=== PATIENT | female | born 1965 | race Caucasian/White ===

== ENCOUNTER 2017-06-27 18:23 | Emergency (ER) | payer MEDICAID ==
[~2017-06-27] VITALS: Ht 160 cm; Wt 85.0 kg
[2017-06-27 19:15] VITALS: BP 133/100
[2017-06-28] MEDS ORDERED: TRAM50TA2 PO (02:07)
[2017-06-28] MEDS ORDERED: HYDROcodone/acetaminophen 5mg/325mg tablet PO ONE (03:35)
== END 2017-06-28 03:04 | disposition home or self-care (01) ==
LOC: ER 18:24
DX: S80.12XA Contusion of left lower leg, initial encounter (principal); X58.XXXA Exposure to other specified factors, initial encounter; Y93.89 Activity, other specified; Y92.89 Other specified places as the place of occurrence of the external cause; Y99.8 Other external cause status
CPT/HCPCS: 93970; 99284

== ENCOUNTER 2017-08-02 15:52 | Emergency (ER) | payer MEDICAID ==
[~2017-08-02] VITALS: Ht 558.9 cm; Wt 96.0 kg
[~2017-08-02 15:52] MED LIST: TRAM50TA2 PO
[2017-08-02 15:54] VITALS: BP 142/82
[2017-08-02] MEDS ORDERED: normal saline 1000ML IV soln IVB ONE (16:05)
[2017-08-02] MEDS ORDERED: dexamethasone sod phosphate 10mg/ml inj IM STA (16:26)
[2017-08-02] MEDS ORDERED: ketorolac trometh. 30mg/ml inj. IV ONE (16:30)
[2017-08-02] MEDS ORDERED: LORazepam 2 mg/ml vial IV ONE (16:30)
[2017-08-02 16:36] LABS: BASOPHILS % (AUTO) 0.1 % (0-1); EOSINOPHILS # (AUTO) 0.3 X10'3 (0-0.9); EOSINOPHILS % (AUTO) 3.7 % (0-6); HEMATOCRIT 38.4 % (35.0-45.0); HEMOGLOBIN 13.1 g/dl (12.0-16.0); LYMPHOCYTES # (AUTO) 1.9 X10'3 (1.1-4.8); LYMPHOCYTES % (AUTO) 23.6 % (21-51); MEAN CORPUSCULAR HEMOGLOBIN 31.4 PG (27.0-31.0); MEAN CORPUSCULAR HGB CONC 34.3 % (33.0-36.5); MEAN CORPUSCULAR VOLUME 91.6 FL (78-98); MEAN PLATELET VOLUME 8.3 FL (7.4-10.4); MONOCYTES # (AUTO) 0.6 X10'3 (0-0.9); MONOCYTES % (AUTO) 7.2 % (2-12); NEUTROPHILS # (AUTO) 5.4 X10'3 (1.8-7.7); NEUTROPHILS % (AUTO) 65.4 % (42-75); PLATELET COUNT 229 X10'3 (140-440); RED BLOOD COUNT 4.19 X10'6 (4.20-5.60); RED CELL DISTRIBUTION WIDTH 14.7 % (11.5-14.5); WHITE BLOOD COUNT 8.2 X10'3 (4.5-11.0)
[2017-08-02 16:50] LABS: ALANINE AMINOTRANSFERASE 24 U/L (12-78); ALBUMIN 3.3 G/DL (3.4-5.0); ALKALINE PHOSPHATASE 78 IU/L (46-116); ANION GAP 12 (8-16); ASPARTATE AMINO TRANSFERASE 15 U/L (10-37); BILIRUBIN,TOTAL 0.3 MG/DL (0.1-1.0); BLOOD UREA NITROGEN 22 MG/DL (7-18); BUN/CREATININE RATIO 19.6 (6.6-38.0); CALCIUM 9.1 MG/DL (8.5-10.1); CHLORIDE 105 MMOL/L (99-107); CREATININE 1.12 MG/DL (0.40-0.90); GLUCOSE 90 MG/DL (70-104); SODIUM 140 MMOL/L (135-145); TOTAL PROTEIN 6.6 G/DL (6.4-8.2); eGFR 51 ML/MIN
== END 2017-08-02 17:29 | disposition home or self-care (01) ==
LOC: ER 15:53
DX: G43.809 Other migraine, not intractable, without status migrainosus (principal); E78.00 Pure hypercholesterolemia, unspecified; Z91.040 Latex allergy status; Z79.899 Other long term (current) drug therapy
CPT/HCPCS: 36415; 70450; 80053; 85025; 93005; 96361; 96372; 96374; 96375; 99285; J1100; J1885; J2060; J7030

== ENCOUNTER 2019-06-13 07:17 | Day surgery (SDC) | payer MEDICAID ==
[2019-06-09 10:30] LABS: BASOPHILS % (AUTO) 0.5 % (0-1); EOSINOPHILS # (AUTO) 0.1 X10'3 (0-0.9); EOSINOPHILS % (AUTO) 1.8 % (0-6); LYMPHOCYTES # (AUTO) 1.3 X10'3 (1.1-4.8); LYMPHOCYTES % (AUTO) 14.9 % (21-51); MEAN CORPUSCULAR HEMOGLOBIN 31.2 PG (27.0-31.0); MEAN CORPUSCULAR HGB CONC 33.3 g/dL (33.0-36.5); MEAN CORPUSCULAR VOLUME 93.8 FL (78-98); MEAN PLATELET VOLUME 8.5 FL (7.4-10.4); MONOCYTES # (AUTO) 0.5 X10'3 (0-0.9); MONOCYTES % (AUTO) 6.1 % (2-12); NEUTROPHILS # (AUTO) 6.5 X10'3 (1.8-7.7); NEUTROPHILS % (AUTO) 76.7 % (42-75); PRE OP HEMATOCRIT 44.2 % (35.0-45.0); PRE OP HEMOGLOBIN 14.7 g/dL (12.0-16.0); PRE OP PLATELET COUNT 347 X10'3 (140-440); RED BLOOD COUNT 4.71 X10'6 (4.20-5.60); RED CELL DISTRIBUTION WIDTH 15.2 % (11.5-14.5)
[2019-06-09 10:32] LABS: COLOR,URINE YELLOW (Yellow); GLUCOSE, URINE NEGATIVE (Neg); KETONES,URINE NEGATIVE (Neg); LEUKOCYTE ESTERASE ,URINE TRACE (Neg); NITRITES, URINE NEGATIVE (Neg); OCCULT BLOOD,URINE NEGATIVE (Neg); PH,URINE 5.5 (4.8-8.0); PROTEIN,URINE NEGATIVE (Neg); UROBILINOGEN,URINE 0.2 E.U/dL (0.2-1.0)
[2019-06-09 10:36] LABS: CLARITY,URINE SLIGHTLY CLOUDY (Clear); UA COLLECTION TYPE CLN CATCH MIDSTREAM
[2019-06-09 10:40] LABS: BACTERIA,URINE 1+ /HPF (Neg); SQUAMOUS EPITHELIAL CELL,UR MODERATE /LPF (FEW)
[2019-06-09 10:41] LABS: RBC,URINE 0-2 /HPF (0-2)
[2019-06-09 10:42] LABS: ALBUMIN 3.7 G/DL (3.4-5.0); ALKALINE PHOSPHATASE 90 IU/L (46-116); BLOOD UREA NITROGEN 18 MG/DL (7-18); CALCIUM 9.3 MG/DL (8.5-10.1); CHLORIDE 105 MMOL/L (99-107); PRE OP ALT 24 U/L (30-65); PRE OP ANION GAP 6 (8-16); PRE OP AST 22 U/L (10-37); PRE OP BILIRUB, TOTAL 0.3 MG/DL (0.0-1.0); PRE OP GLUCOSE 90 MG/DL (70-104); PRE OP POTASSIUM 4.6 MMOL/L (3.4-5.1); PRE OP SODIUM 140 MMOL/L (135-145); TOTAL CARBON DIOXIDE 29.4 MMOL/L (24-32); TOTAL PROTEIN 7.5 G/DL (6.4-8.2); eGFR 58 ML/MIN
[2019-06-13] VITALS (13 sets, daily range): BP systolic 122–144; BP diastolic 73–94
[~2019-06-13] VITALS: Ht 162.6 cm; Wt 95.3 kg
[~2019-06-13 07:17] MED LIST changes: +ACET-812 PO; +ALBU8.5H8 INH; +BECL10.6 INH; -TRAM50TA2 PO; +cefazolin/dext.iso 2gm/100ml 100 ML IV ONE; +famotidine 20mg tablet PO ONE; +ringers solution, lacted 1,000 ML IV SCH
[2019-06-13] MEDS ORDERED: ringers solution, lacted 1,000 ML IV SCH (07:43)
[2019-06-13] MEDS ORDERED: ondansetron/PF 4mg/2ml inj IV PRN (07:45)
[2019-06-13] MEDS ORDERED: morphine 2 MG/ML inj. syringe IV PRN (07:45)
[2019-06-13] MEDS ORDERED: proCHLORperazine 10 MG/2 ml inj IV PRN (07:45)
[2019-06-13] MEDS ORDERED: meperidine/PF 25mg/ml syringe IV PRN ×2 (07:45)
[2019-06-13] MEDS ORDERED: sevoflurane 250ml liquid IH ONE (09:25)
[2019-06-13] MEDS ORDERED: MIDAZolam 5mg/5ml vial ONE (09:33)
[2019-06-13] MEDS ORDERED: fentaNYL/PF 50MCG/1 ML 2ML syringe ONE (09:33)
[2019-06-13] MEDS ORDERED: LIDOcaine 2% (20mg/ml) 5ml vial ONE (09:47)
[2019-06-13] MEDS ORDERED: propofol inj 20 ML IV ONE (09:47)
[2019-06-13] MEDS ORDERED: rocuronium 10mg/ml inj IV ONE (09:48)
[2019-06-13] MEDS ORDERED: dexamethasone sod phosphate 4mg/ml inj. ONE (10:04)
[2019-06-13] MEDS ORDERED: ondansetron/PF 4mg/2ml inj ONE (10:05)
[2019-06-13] MEDS ORDERED: acetaminophen 1,000mg/100ml IV 100 ML IV ONE (10:06)
[2019-06-13] MEDS ORDERED: bacitracin 15gm ointment TP ONE (11:02)
--- NOTE | 2019-06-13 11:21 | NUR ---
Received from OR via [facility], accompanied by Anesthesiologist DR DUMONT and report given by Anesthesiologist. 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 Addendum: 06/13/19 at 1205 by Chela Calles RN Amended: Links added.
[2019-06-13] MEDS: meperidine/PF 25mg/ml syringe IV PRN ×3 (11:45→12:29)
[2019-06-13] MEDS: morphine 4 MG/ML inj SYRINge IV PRN ×2 (12:00→12:10)
[2019-06-13] MEDS ORDERED: HYDROcodone/acetaminophen 10/325mg tab PO ONE (12:50)
[2019-06-13] MEDS ORDERED: ketorolac trometh. 30mg/ml inj. IV ONE (12:50)
[2019-06-13] MEDS ORDERED: ibuprofen 200mg tablet PO ONE (13:40)
--- NOTE | 2019-06-13 13:41 | NUR ---
PT D/C INSTRUCTIONS GIVEN AND GONE OVER W/PT WHO VERBALIZES UNDERSTANDING, PT PAIN IMPROVED BUT STILL 06/14, DR ALANIS AND DR DUMONT AWARE, PT D/CD TO HOME VIA W/C TO PRIVATE VEHICLE W/O INCIDENT. Addendum: 06/13/19 at 1419 by Chela Calles RN Amended: Links added.
[2019-06-14] MEDS ORDERED: albuterol 2.5 MG/3 ML nebule NEB ONE (05:30)
== END 2019-06-13 13:41 | disposition home or self-care (01) ==
LOC: PAS 07:17
PROVIDERS: ATTEND Podiatrist Foot & Ankle Surgery
DX: M21.6X1 Other acquired deformities of right foot (principal); M76.61 Achilles tendinitis, right leg; M92.61 Juvenile osteochondrosis of tarsus, right ankle; M77.31 Calcaneal spur, right foot; Z79.82 Long term (current) use of aspirin; F17.210 Nicotine dependence, cigarettes, uncomplicated; F41.8 Other specified anxiety disorders; M19.90 Unspecified osteoarthritis, unspecified site; Z79.899 Other long term (current) drug therapy; Z11.59 Encounter for screening for other viral diseases
CPT/HCPCS: 27650; 27687; 28119; 36415; 80053; 81001; 82948; 85025; 87088; 87635; 93005; 94640; 94760; A6223; C1713; J0131; J1100; J1885; J2001; J2175; J2250; J2270; J2405; J2704; J3010; J7120; A4215; A4618; A6253; A6449; A7000

== ENCOUNTER 2021-02-27 12:59 | Emergency (ER) | payer MEDICAID ==
[~2021-02-27] VITALS: Ht 160 cm; Wt 81.8 kg
[~2021-02-27 12:59] MED LIST changes: +ALBU8.5H17 INH; -ALBU8.5H8 INH; -cefazolin/dext.iso 2gm/100ml 100 ML IV ONE; -famotidine 20mg tablet PO ONE; -ringers solution, lacted 1,000 ML IV SCH
[2021-02-27 13:39] VITALS: BP 119/79
[2021-02-27] MEDS ORDERED: ketorolac trometh inj. 60 MG/2 ML VIAL IM ONE (15:15)
[2021-02-27] MEDS ORDERED: ALBU8HFA PO (16:31)
== END 2021-02-27 18:00 | disposition home or self-care (01) ==
LOC: ER 13:00
DX: R05.9 Cough, unspecified (principal); Z20.822 Contact with and (suspected) exposure to COVID-19; R11.2 Nausea with vomiting, unspecified; R19.7 Diarrhea, unspecified; J45.909 Unspecified asthma, uncomplicated; E78.00 Pure hypercholesterolemia, unspecified; Z86.19 Personal history of other infectious and parasitic diseases; Z91.040 Latex allergy status; Z79.899 Other long term (current) drug therapy
CPT/HCPCS: 71045; 87635; 96372; 99284; C9803; J1885

== ENCOUNTER 2021-03-26 11:32 | Emergency (ER) | payer MEDICAID, OTHER ==
[~2021-03-26] VITALS: Ht 162.6 cm; Wt 85.5 kg
[~2021-03-26 11:32] MED LIST changes: +ALBU8HFA PO
[2021-03-26 11:46] VITALS: BP 127/86
[2021-03-26] MEDS ORDERED: ketorolac trometh. 30mg/ml inj. IM ONE (12:10)
--- NOTE | 2021-03-26 14:16 | NUR ---
PT STATES "YAGLENROY ARE TREATING ME LIKE A DRUG ADDICT BECAUSE I WANT PAIN MEDICINE WHILE I AM HERE"; EDUCATED THAT PT DID RECEIVED TORADOL. STATES THAT THE MEDICATION GIVEN DID NOT HELP AND THE TYLENOL OR MOTRIN WON'T HELP EITHER. STATES THAT SHE IS FILING A COMPLAINT WITH LEGAL WE ARE MISTREATING HER. INSTRUCTED PT TO FOLLOW UP WITH PCP TO DISCUSS ADDITIONAL PAIN CONTROL NOTHING EMERGENT WAS FOUND DURING ASSESSMENT AND EVALUATION.
== END 2021-03-26 14:19 | disposition home or self-care (01) ==
LOC: ER 11:48
DX: S43.52XA Sprain of left acromioclavicular joint, initial encounter (principal); S63.502A Unspecified sprain of left wrist, initial encounter; S83.92XA Sprain of unspecified site of left knee, initial encounter; E78.00 Pure hypercholesterolemia, unspecified; J45.909 Unspecified asthma, uncomplicated; F17.200 Nicotine dependence, unspecified, uncomplicated; F12.90 Cannabis use, unspecified, uncomplicated; Z91.040 Latex allergy status; Z79.899 Other long term (current) drug therapy; W19.XXXA Unspecified fall, initial encounter; Y93.89 Activity, other specified; Y92.89 Other specified places as the place of occurrence of the external cause; Y99.8 Other external cause status
CPT/HCPCS: 73030; 73100; 73560; 96372; 99284; J1885

== ENCOUNTER 2022-03-07 10:41 | Emergency (ER) | payer MEDICAID, OTHER ==
[~2022-03-07] VITALS: Ht 162.6 cm; Wt 86.4 kg
[~2022-03-07 10:41] MED LIST changes: -ALBU8HFA PO
[2022-03-07 10:46] VITALS: BP 155/96
[2022-03-07] MEDS ORDERED: levetiracetam inj 1,000 MG in normal saline 100ml IV soln 90 ML IV STA (10:46)
[2022-03-07] MEDS ORDERED: normal saline 1000ML IV soln IVB ONE (10:50)
[2022-03-07] MEDS ORDERED: LORazepam 2 mg/ml vial IV ONE (10:50)
[2022-03-07] MEDS ORDERED: levetiracetam inj 1,000 MG in normal saline 100ml IV soln 100 ML IV STA (10:52)
[2022-03-07] MEDS ORDERED: ondansetron/PF 4mg/2ml inj IV ONE (10:53)
[2022-03-07] MEDS ORDERED: magnesium 2GM in 50ml NS 50 ML IV ONE (10:53)
[2022-03-07 11:18] LABS: BASOPHILS % (AUTO) 0.4 % (0-1); EOSINOPHILS % (AUTO) 0.2 % (0-6); HEMATOCRIT 43.2 % (35.0-45.0); HEMOGLOBIN 14.5 g/dl (12.0-16.0); LYMPHOCYTES # (AUTO) 1.1 X10'3 (1.1-4.8); LYMPHOCYTES % (AUTO) 9.9 % (21-51); MEAN CORPUSCULAR HEMOGLOBIN 30.7 PG (27.0-31.0); MEAN CORPUSCULAR HGB CONC 33.6 g/dL (33.0-36.5); MEAN CORPUSCULAR VOLUME 91.4 FL (78-98); MEAN PLATELET VOLUME 7.7 FL (7.4-10.4); MONOCYTES # (AUTO) 0.7 X10'3 (0-0.9); NEUTROPHILS # (AUTO) 9.3 X10'3 (1.8-7.7); NEUTROPHILS % (AUTO) 83.5 % (42-75); PLATELET COUNT 334 X10'3 (140-440); RED BLOOD COUNT 4.72 X10'6 (4.20-5.60); RED CELL DISTRIBUTION WIDTH 14.7 % (11.5-14.5); WHITE BLOOD COUNT 11.1 X10'3 (4.5-11.0)
--- NOTE | 2022-03-07 11:28 | NUR ---
to ct scan.
[2022-03-07 11:32] LABS: ALANINE AMINOTRANSFERASE 51 U/L (12-78); ALBUMIN 3.7 G/DL (3.4-5.0); ALBUMIN/GLOBULIN RATIO 0.9 (1.1-1.5); ALKALINE PHOSPHATASE 114 IU/L (46-116); ANION GAP 11 (8-16); ASPARTATE AMINO TRANSFERASE 32 U/L (10-37); BILIRUBIN,TOTAL 0.4 MG/DL (0.1-1.0); BLOOD UREA NITROGEN 21 MG/DL (7-18); BUN/CREATININE RATIO 20.8 (6.6-38.0); CALCIUM 9.8 MG/DL (8.5-10.1); CHLORIDE 100 MMOL/L (99-107); CREATININE 1.01 MG/DL (0.40-0.90); GLUCOSE 145 MG/DL (70-104); SODIUM 135 MMOL/L (135-145); TOTAL CARBON DIOXIDE 24.2 MMOL/L (24-32); eGFR 57 ML/MIN
[2022-03-07 11:33] LABS: CREATINE KINASE 47 U/L (26-192); ETHANOL < 0.010 GM/DL (0.0-0.010)
[2022-03-07] MEDS ORDERED: ketorolac trometh. 30mg/ml inj. IV ONE (11:35)
--- NOTE | 2022-03-07 12:17 | NUR ---
c- collar taken off as per verbal order of lesa weiner.
[2022-03-07] MEDS ORDERED: HYDROcodone/acetaminophen 5mg/325mg tablet PO ONE (16:10)
== END 2022-03-07 16:41 | disposition home or self-care (01) ==
LOC: ER 10:42
DX: G40.909 Epilepsy, unspecified, not intractable, without status epilepticus (principal); E78.00 Pure hypercholesterolemia, unspecified; J45.909 Unspecified asthma, uncomplicated; F12.90 Cannabis use, unspecified, uncomplicated; Z91.040 Latex allergy status
CPT/HCPCS: 36415; 70450; 72125; 72131; 80053; 80320; 82140; 82550; 85025; 93005; 96365; 96366; 96368; 96375; 99285; J1885; J1953; J2060; J2405; J3475; J3490; J7030

== ENCOUNTER 2022-04-10 05:38 | Emergency (ER) | payer MEDICAID ==
[~2022-04-10] VITALS: Ht 160 cm; Wt 84.0 kg
[2022-04-10 06:28] LABS: BASOPHILS # (AUTO) 0.1 X10'3 (0-0.2); BASOPHILS % (AUTO) 0.8 % (0-1); EOSINOPHILS # (AUTO) 0.4 X10'3 (0-0.9); EOSINOPHILS % (AUTO) 5.8 % (0-6); HEMATOCRIT 40.4 % (35.0-45.0); HEMOGLOBIN 13.7 g/dl (12.0-16.0); LYMPHOCYTES # (AUTO) 1.8 X10'3 (1.1-4.8); LYMPHOCYTES % (AUTO) 24.3 % (21-51); MEAN CORPUSCULAR HEMOGLOBIN 31.2 PG (27.0-31.0); MEAN CORPUSCULAR VOLUME 91.9 FL (78-98); MEAN PLATELET VOLUME 7.8 FL (7.4-10.4); MONOCYTES # (AUTO) 0.6 X10'3 (0-0.9); MONOCYTES % (AUTO) 8.3 % (2-12); NEUTROPHILS # (AUTO) 4.6 X10'3 (1.8-7.7); NEUTROPHILS % (AUTO) 60.8 % (42-75); PLATELET COUNT 299 X10'3 (140-440); RED BLOOD COUNT 4.39 X10'6 (4.20-5.60); RED CELL DISTRIBUTION WIDTH 14.4 % (11.5-14.5); WHITE BLOOD COUNT 7.6 X10'3 (4.5-11.0)
[2022-04-10 06:31] LABS: ALANINE AMINOTRANSFERASE 22 U/L (12-78); ALBUMIN 3.7 G/DL (3.4-5.0); ALBUMIN/GLOBULIN RATIO 1.1 (1.1-1.5); ALKALINE PHOSPHATASE 95 IU/L (46-116); ANION GAP 8 (8-16); ASPARTATE AMINO TRANSFERASE 28 U/L (10-37); BILIRUBIN,TOTAL 0.3 MG/DL (0.1-1.0); BLOOD UREA NITROGEN 27 MG/DL (7-18); BUN/CREATININE RATIO 27.8 (6.6-38.0); CALCIUM 8.9 MG/DL (8.5-10.1); CHLORIDE 105 MMOL/L (99-107); CREATININE 0.97 MG/DL (0.40-0.90); GLUCOSE 107 MG/DL (70-104); POTASSIUM 4.6 MMOL/L (3.5-5.1); SODIUM 139 MMOL/L (135-145); TOTAL CARBON DIOXIDE 25.8 MMOL/L (24-32); eGFR 60 ML/MIN
[2022-04-10] MEDS ORDERED: mag hydrox/Alum hydrox/simeth 30ml oral suspension PO ONE (06:40)
[2022-04-10] MEDS ORDERED: pantoprazole 40 MG vial IV ONE (06:40)
[2022-04-10] MEDS ORDERED: ondansetron/PF 4mg/2ml inj IV ONE (06:40)
[2022-04-10] MEDS ORDERED: normal saline 1000ML IV soln IVB ONE (06:40)
[2022-04-10] MEDS ORDERED: LIDOcaine Viscous 15ml cup MM ONE (06:40)
[2022-04-10] MEDS ORDERED: pantoprazole 40MG/NS 100ML BAG 100 ML IV ONE (07:15)
[2022-04-10] MEDS ORDERED: PANT-47 PO (10:28)
[2022-04-10 10:30] VITALS: BP 138/78
== END 2022-04-10 10:32 | disposition home or self-care (01) ==
LOC: ER 05:39
DX: R07.89 Other chest pain (principal); R10.13 Epigastric pain; E78.00 Pure hypercholesterolemia, unspecified; J45.909 Unspecified asthma, uncomplicated; F17.200 Nicotine dependence, unspecified, uncomplicated; F12.90 Cannabis use, unspecified, uncomplicated; Z91.040 Latex allergy status
CPT/HCPCS: 36415; 71045; 80053; 83690; 83880; 84484; 85025; 93005; 96361; 96365; 96375; 99285; C9113; J2405; J7030

== ENCOUNTER 2022-10-10 12:01 | Emergency (ER) | payer MEDICAID ==
[~2022-10-10] VITALS: Ht 162.6 cm; Wt 105.0 kg
[~2022-10-10 12:01] MED LIST changes: +PANT-47 PO
[2022-10-10 13:46] VITALS: TEMP 98
[2022-10-10] MEDS ORDERED: LORazepam 1 MG tablet PO ONE (14:35)
--- NOTE | 2022-10-10 14:40 | NUR ---
Haja uribe in [facility] - 10/10/22 at 1441 by PAT Gave pt water to swallow tablet medication. Pt tolerated well, provided education on head tilt for swallowing pills. Pt verbalized understanding.
[2022-10-10 15:08] VITALS: BP 187/95; PULSE 84; RESP 16; O2SAT 95
== END 2022-10-10 15:09 | disposition home or self-care (01) ==
LOC: ER 12:01
DX: R09.89 Other specified symptoms and signs involving the circulatory and respiratory systems (principal); R11.2 Nausea with vomiting, unspecified; R68.83 Chills (without fever); R06.02 Shortness of breath; F41.9 Anxiety disorder, unspecified; E78.00 Pure hypercholesterolemia, unspecified; J45.909 Unspecified asthma, uncomplicated; F12.90 Cannabis use, unspecified, uncomplicated; Z72.89 Other problems related to lifestyle; Z87.19 Personal history of other diseases of the digestive system; Z79.899 Other long term (current) drug therapy; Z91.040 Latex allergy status
CPT/HCPCS: 99284